=== PATIENT | male | born 1980 | race African-American/Black ===

== ENCOUNTER 2016-05-26 19:26 | Inpatient (IN) | payer MEDICAID ==
[~2016-05-26] VITALS: Ht 175.3 cm; Wt 76.8 kg
[~2016-05-26 19:26] MED LIST: DIVA500T35 PO; QUET50TA PO
[2016-05-26 20:18] LABS: BASOPHILS # (AUTO) 0.03 K/uL (0.00-0.20); BASOPHILS % (AUTO) 0.4 % (0.0-2.0); EOSINOPHILS # (AUTO) 0.05 K/uL (0.00-0.70); EOSINOPHILS % (AUTO) 0.63 % (1.0-6.0); HEMATOCRIT 45.6 % (41-53); LYMPHOCYTES # (AUTO) 2.2 K/uL (1.0-4.8); LYMPHOCYTES % (AUTO) 28.1 % (22.0-44.0); MEAN CORPUSCULAR HEMOGLOBIN 28.3 pg (26.0-34.0); MEAN CORPUSCULAR HGB CONC 32.9 G/dL (31.0-37.0); MEAN CORPUSCULAR VOLUME 86 fL (80-100); MONOCYTES # (AUTO) 0.5 K/uL (0.1-1.0); MONOCYTES % (AUTO) 5.7 % (2.0-9.0); NEUTROPHILS # (AUTO) 5.1 K/uL (1.8-7.7); NEUTROPHILS % (AUTO) 65.2 % (40.0-70.0); PLATELET COUNT (AUTO) 305 K/uL (150-450); RED CELL DISTRIBUTION WIDTH 13.9 % (11.5-14.5); WHITE BLOOD COUNT (AUTO) 7.9 K/uL (4.5-11.0)
[2016-05-26] MEDS ORDERED: QUEtiapine FUMARATE 100 MG TABLET PO ONE (20:30)
[2016-05-26 20:32] LABS: ANION GAP 5 mmol/L (8-16); CALCIUM, TOTAL 9.1 mg/dL (8.8-10.5); CARBON DIOXIDE 32 mmol/L (22-29); CHLORIDE 103 mmol/L (98-107); CREATININE 0.99 mg/dL (0.60-1.30); GLOMERULAR FILTR. RATE CALC > 60 mL/min (>60); POTASSIUM 4.7 mmol/L (3.5-5.1); SODIUM SERUM 140 mmol/L (136-145); UREA NITROGEN, BLOOD 15 mg/dL (7-18)
[2016-05-26] MEDS ORDERED: QUET100T PO (20:35)
[2016-05-26] MEDS ORDERED: QUET200T PO (20:35)
[2016-05-26 20:39] LABS: ALANINE AMINOTRANSFERASE 41 U/L (12-78); ALBUMIN 3.7 g/dL (3.4-5.0); ASPARTATE AMINOTRANSFERASE 18 U/L (15-37); BILIRUBIN,TOTAL 0.4 mg/dL (0.1-1.0)
[2016-05-26] MEDS ORDERED: ZOLPIDEM TARTRATE 10 MG TABLET PO PRN (21:00)
[2016-05-26] MEDS ORDERED: HALOPERIDOL 5 MG TABLET PO PRN (21:00)
[2016-05-26 21:03] LABS: APPEARANCE,URINE CLEAR (CLEAR); GLUCOSE, URINE (UA) NEGATIVE (NEGATIVE); KETONES,URINE NEGATIVE (NEGATIVE); LEUKOCYTE ESTERASE ,URINE NEGATIVE (NEGATIVE); OCCULT BLOOD,URINE NEGATIVE (NEGATIVE); PROTEIN,URINE NEGATIVE (NEGATIVE)
[2016-05-26 21:15] LABS: ADD UA MICROSCOPIC NO
[2016-05-27 00:10] VITALS: BP 140/98
[2016-05-27] MEDS: LORazepam 2 MG TABLET PO PRN ×2 (00:51→20:19)
[2016-05-27] MEDS ORDERED: PNEUMOCOCCAL VACCINE POLYVALENT 0.5 ML VIAL [PPSV23] IM ONE (01:30)
[2016-05-27] MEDS ORDERED: BACITRACIN 28.4 GM OINTMENT TP PRN (06:15)
[2016-05-27] MEDS ORDERED: ALBUTEROL SULFATE HFA 90 MCG/PUFF 8 GM INHALER IH PRN (06:15)
[2016-05-27] MEDS ORDERED: PETROLATUM,WHITE 71 GM JELLY TP PRN (06:15)
[2016-05-27] MEDS ORDERED: ACETAMINOPHEN 325 MG TABLET PO PRN (06:15)
[2016-05-27] MEDS ORDERED: IBUPROFEN 600 MG TABLET PO PRN (06:15)
[2016-05-27] MEDS ORDERED: LOPERAMIDE HCL 2 MG CAPSULE PO PRN (06:15)
[2016-05-27] MEDS ORDERED: ONDANSETRON HCL 4 MG TABLET PO PRN (06:15)
[2016-05-27] MEDS ORDERED: CloNIDine HCL 0.1 MG TABLET PO PRN (06:15)
[2016-05-27] MEDS ORDERED: MAG HYDROX/AL HYDROX/SIMETH ES 30 ML SUSPENSION UDCUP PO PRN (06:15)
[2016-05-27] MEDS ORDERED: MAGNESIUM HYDROXIDE SUSPENSION 30 ML UDCUP PO PRN (06:15)
[2016-05-27 08:08] VITALS: BP 123/60
[2016-05-27] MEDS: LISINOPRIL 10 MG TABLET PO SCH (08:49)
[2016-05-27] MEDS: QUEtiapine FUMARATE 100 MG TABLET PO SCH ×2 (08:49→17:08)
[2016-05-27 16:09] VITALS: BP 123/79
[2016-05-27] MEDS: BENZOCAINE/MENTHOL LOZENGE MM PRN (17:16)
[2016-05-27] MEDS: QUEtiapine FUMARATE 200 MG TABLET PO SCH (21:29)
[2016-05-27] MEDS: DIVALPROEX SODIUM 500 MG DR TABLET PO SCH (21:29)
[2016-05-28 07:26] VITALS: BP 115/69
[2016-05-28] MEDS: GuaiFENesin/D-METHORPHAN/PHENYLEPH 5 ML LIQUID ORAL.SYG PO PRN ×4 (07:40→20:13)
[2016-05-28 08:27] VITALS: BP 139/70
[2016-05-28] MEDS: QUEtiapine FUMARATE 100 MG TABLET PO SCH ×2 (09:50→16:42)
[2016-05-28] MEDS: LISINOPRIL 10 MG TABLET PO SCH (09:50)
[2016-05-28] MEDS: BENZOCAINE/MENTHOL LOZENGE MM PRN (12:01)
[2016-05-28 16:12] VITALS: BP 117/74
[2016-05-28] MEDS: DIVALPROEX SODIUM 500 MG DR TABLET PO SCH (20:33)
[2016-05-28] MEDS: QUEtiapine FUMARATE 200 MG TABLET PO SCH (20:33)
[2016-05-29] MEDS: BENZOCAINE/MENTHOL LOZENGE MM PRN (05:06)
[2016-05-29] MEDS: LORazepam 2 MG TABLET PO PRN (05:31)
[2016-05-29 05:37] VITALS: BP 115/80
[2016-05-29] MEDS: QUEtiapine FUMARATE 100 MG TABLET PO SCH (08:44)
[2016-05-29] MEDS: LISINOPRIL 10 MG TABLET PO SCH (08:44)
[2016-05-29] MEDS: GuaiFENesin/D-METHORPHAN/PHENYLEPH 5 ML LIQUID ORAL.SYG PO PRN (08:45)
[2016-05-29 09:35] VITALS: BP 125/68
[2016-05-29] MEDS ORDERED: LISI-661 PO (11:12)
== END 2016-05-29 16:10 | disposition home or self-care (01) | DRG 750 ==
LOC: EMS 19:27 → B2S 20:30
DX: F25.1 Schizoaffective disorder, depressive type (principal); R45.851 Suicidal ideations; I10 Essential (primary) hypertension; B19.20 Unspecified viral hepatitis C without hepatic coma; F12.90 Cannabis use, unspecified, uncomplicated; F17.200 Nicotine dependence, unspecified, uncomplicated; K59.00 Constipation, unspecified; Z71.6 Tobacco abuse counseling; Z91.5 Personal history of self-harm; Z71.51 Drug abuse counseling and surveillance of drug abuser; Z79.899 Other long term (current) drug therapy; Z28.21 Immunization not carried out because of patient refusal
CPT/HCPCS: 99285; G0480

== ENCOUNTER 2016-11-21 01:29 | Emergency (ER) | payer MEDICAID ==
[~2016-11-21] VITALS: Ht 175.3 cm; Wt 72.7 kg
[~2016-11-21 01:29] MED LIST changes: +LISI-661 PO; +QUET100T PO; +QUET200T PO; -QUET50TA PO
[2016-11-21 01:46] VITALS: BP 136/86
[2016-11-21 02:12] LABS: BASOPHILS % (AUTO) 0.7 % (0.0-2.0); EOSINOPHILS % (AUTO) 1.6 % (1.0-6.0); HEMATOCRIT 46.1 % (41-53); HEMOGLOBIN 15.5 g/dL (13.5-17.5); LYMPHOCYTES # (AUTO) 2.3 K/uL (1.0-4.8); LYMPHOCYTES % (AUTO) 48.8 % (22.0-44.0); MEAN CORPUSCULAR HEMOGLOBIN 29.3 pg (26.0-34.0); MEAN CORPUSCULAR HGB CONC 33.5 G/dL (31.0-37.0); MEAN CORPUSCULAR VOLUME 88 fL (80-100); MONOCYTES # (AUTO) 0.5 K/uL (0.1-1.0); NEUTROPHILS # (AUTO) 1.9 K/uL (1.8-7.7); NEUTROPHILS % (AUTO) 38.9 % (40.0-70.0); PLATELET COUNT (AUTO) 255 K/uL (150-450); RED BLOOD CELL COUNT(AUTO) 5.27 MIL/uL (4.50-5.90); RED CELL DISTRIBUTION WIDTH 13.5 % (11.5-14.5); WHITE BLOOD COUNT (AUTO) 4.8 K/uL (4.5-11.0)
[2016-11-21] MEDS ORDERED: QUEtiapine FUMARATE 100 MG TABLET PO ONE (02:15)
[2016-11-21 02:24] LABS: ANION GAP 6 mmol/L (8-16); CALCIUM, TOTAL 8.6 mg/dL (8.8-10.5); CARBON DIOXIDE 32 mmol/L (22-29); CHLORIDE 104 mmol/L (98-107); CREATININE 1.21 mg/dL (0.60-1.30); GLOMERULAR FILTR. RATE CALC > 60 mL/min (>60); POTASSIUM 3.3 mmol/L (3.5-5.1); SODIUM SERUM 142 mmol/L (136-145); UREA NITROGEN, BLOOD 11 mg/dL (7-18)
[2016-11-21 02:30] LABS: ALANINE AMINOTRANSFERASE 102 U/L (12-78); ALBUMIN 4.1 g/dL (3.4-5.0); ASPARTATE AMINOTRANSFERASE 49 U/L (15-37); BILIRUBIN,TOTAL 0.9 mg/dL (0.1-1.0); TOTAL PROTEIN, SERUM 7.8 g/dL (6.4-8.2)
[2016-11-21 02:42] LABS: VALPROIC ACID < 3 mcg/mL (50-100)
[2017-03-05] MEDS ORDERED: CLIN300C3 PO (11:41)
== END 2016-11-21 02:22 | disposition home or self-care (01) ==
LOC: EMS 01:30
DX: F31.9 Bipolar disorder, unspecified (principal); F20.9 Schizophrenia, unspecified
CPT/HCPCS: 36415; 80053; 80164; 80307; 85025; 99285; G0480

== ENCOUNTER 2017-02-09 01:24 | Emergency (ER) | payer MEDICAID ==
[~2017-02-09] VITALS: Ht 175.3 cm; Wt 63.6 kg
[2017-02-09 01:31] VITALS: BP 154/95
[2017-03-05] MEDS ORDERED: CLIN300C3 PO (11:41)
== END 2017-02-09 02:28 | disposition left against medical advice (07) ==
LOC: EMS 01:25
DX: K08.89 Other specified disorders of teeth and supporting structures (principal); Z53.21 Procedure and treatment not carried out due to patient leaving prior to being seen by health care provider

== ENCOUNTER 2017-02-22 19:56 | Inpatient (IN) | payer MEDICAID ==
[~2017-02-22] VITALS: Ht 175.3 cm; Wt 77.7 kg
[2017-02-22 20:25] LABS: BASOPHILS # (AUTO) 0.03 K/uL (0.00-0.20); BASOPHILS % (AUTO) 0.6 % (0.0-2.0); EOSINOPHILS # (AUTO) 0.06 K/uL (0.00-0.70); EOSINOPHILS % (AUTO) 1.05 % (1.0-6.0); HEMATOCRIT 47.6 % (41-53); HEMOGLOBIN 15.8 g/dL (13.5-17.5); LYMPHOCYTES # (AUTO) 1.9 K/uL (1.0-4.8); LYMPHOCYTES % (AUTO) 30.2 % (22.0-44.0); MEAN CORPUSCULAR HEMOGLOBIN 29.2 pg (26.0-34.0); MEAN CORPUSCULAR HGB CONC 33.1 G/dL (31.0-37.0); MEAN CORPUSCULAR VOLUME 88 fL (80-100); MONOCYTES # (AUTO) 0.2 K/uL (0.1-1.0); MONOCYTES % (AUTO) 3.9 % (2.0-9.0); NEUTROPHILS % (AUTO) 64.2 % (40.0-70.0); PLATELET COUNT (AUTO) 340 K/uL (150-450); RED BLOOD CELL COUNT(AUTO) 5.39 MIL/uL (4.50-5.90); RED CELL DISTRIBUTION WIDTH 13.1 % (11.5-14.5)
[2017-02-22 20:38] LABS: AMPHET/METH SCREEN,URINE POSITIVE (NEGATIVE); BARBITURATE SCREEN, URINE NEGATIVE (NEGATIVE); BENZODIAZEPINES SCREEN,URINE NEGATIVE (NEGATIVE); CANNABINOID SCREEN,URINE POSITIVE (NEGATIVE); COCAINE SCREEN,URINE NEGATIVE (NEGATIVE); METHADONE SCREEN, URINE NEGATIVE (NEGATIVE); OPIATE SCREEN,URINE NEGATIVE (NEGATIVE)
[2017-02-22 20:39] LABS: PHENCYCLIDINE SCREEN,URINE NEGATIVE (NEGATIVE)
[2017-02-22 20:42] LABS: ANION GAP 7 mmol/L (8-16); CALCIUM, TOTAL 8.9 mg/dL (8.8-10.5); CARBON DIOXIDE 29 mmol/L (22-29); CHLORIDE 102 mmol/L (98-107); CREATININE 1.16 mg/dL (0.60-1.30); GLOMERULAR FILTR. RATE CALC > 60 mL/min (>60); GLUCOSE,RANDOM 103 mg/dL (70-110); POTASSIUM 3.8 mmol/L (3.5-5.1); SODIUM SERUM 138 mmol/L (136-145); UREA NITROGEN, BLOOD 16 mg/dL (7-18)
[2017-02-22 20:48] LABS: ALANINE AMINOTRANSFERASE 46 U/L (12-78); ALBUMIN 3.7 g/dL (3.4-5.0); ALKALINE PHOSPHATASE 82 U/L (46-116); ASPARTATE AMINOTRANSFERASE 25 U/L (15-37); BILIRUBIN,TOTAL 0.5 mg/dL (0.1-1.0); TOTAL PROTEIN, SERUM 7.6 g/dL (6.4-8.2)
[2017-02-22 21:34] LABS: APPEARANCE,URINE CLEAR (CLEAR); BILIRUBIN,URINE NEGATIVE (NEGATIVE); GLUCOSE, URINE (UA) NEGATIVE (NEGATIVE); KETONES,URINE NEGATIVE (NEGATIVE); LEUKOCYTE ESTERASE ,URINE NEGATIVE (NEGATIVE); NITRATE,URINE NEGATIVE (NEGATIVE); OCCULT BLOOD,URINE NEGATIVE (NEGATIVE); PROTEIN,URINE NEGATIVE (NEGATIVE); UROBILINOGEN,URINE 0.2 mg/dL (<=1.0)
[2017-02-22 21:52] LABS: CHOL/HDL RATIO 3.5 (4.2-7.3); CHOLESTEROL 138 mg/dL (131-200); HDL CHOLESTEROL 39 mg/dL (40-60); LDL CHOL (CALC.) 81 mg/dL (0-130); THYROID STIMULATING HORMONE 3.63 uIU/mL (0.36-3.74); TRIGLYCERIDES 89 mg/dL (15-150)
[2017-02-23 02:00] VITALS: BP 123/66
[2017-02-23 08:00] VITALS: BP 128/80
[2017-02-23] MEDS: LORazepam 2 MG TABLET PO PRN (11:34)
[2017-02-23] MEDS: HALOPERIDOL 5 MG TABLET PO PRN (11:34)
[2017-02-23 16:15] VITALS: BP 131/78
[2017-02-23] MEDS: DIVALPROEX SODIUM 500 MG DR TABLET PO SCH (21:00)
[2017-02-23] MEDS: QUEtiapine FUMARATE 200 MG TABLET PO SCH (21:00)
[2017-02-24] MEDS: ZOLPIDEM TARTRATE 10 MG TABLET PO PRN
[2017-02-24] MEDS: LORazepam 2 MG TABLET PO PRN (03:00)
[2017-02-24] MEDS: HALOPERIDOL 5 MG TABLET PO PRN (03:01)
[2017-02-24 03:05] VITALS: BP 137/78
[2017-02-24 08:30] VITALS: BP 133/74
[2017-02-24] MEDS: QUEtiapine FUMARATE 100 MG TABLET PO SCH ×2 (08:53→16:41)
[2017-02-24 18:32] VITALS: BP 132/78
[2017-02-24] MEDS: QUEtiapine FUMARATE 200 MG TABLET PO SCH (20:34)
[2017-02-24] MEDS: DIVALPROEX SODIUM 500 MG DR TABLET PO SCH (20:34)
[2017-02-25] MEDS: QUEtiapine FUMARATE 100 MG TABLET PO SCH ×2 (08:50→16:15)
[2017-02-25 09:47] VITALS: BP 123/76
[2017-02-25 16:18] VITALS: BP 130/73
[2017-02-25] MEDS: DIVALPROEX SODIUM 500 MG DR TABLET PO SCH (20:20)
[2017-02-25] MEDS: QUEtiapine FUMARATE 200 MG TABLET PO SCH (20:21)
[2017-02-26 08:00] VITALS: BP 143/72
[2017-02-26] MEDS ORDERED: IBUPROFEN 600 MG TABLET PO PRN (09:00)
[2017-02-26] MEDS ORDERED: ACETAMINOPHEN 650 MG/20.3 ML SOLUTION UDCUP PO PRN (09:00)
[2017-02-26] MEDS: QUEtiapine FUMARATE 100 MG TABLET PO SCH ×2 (09:16→16:14)
[2017-02-26 10:52] VITALS: BP_SYST 136; BP_SYST 143; BP_DIAS 72; BP_DIAS 82
[2017-02-26 18:45] VITALS: BP 128/85
[2017-02-26] MEDS: QUEtiapine FUMARATE 200 MG TABLET PO SCH (20:42)
[2017-02-26] MEDS: DIVALPROEX SODIUM 500 MG DR TABLET PO SCH (20:42)
[2017-02-27 02:10] VITALS: BP 124/75
[2017-02-27] MEDS: LORazepam 2 MG TABLET PO PRN (02:21)
[2017-02-27] MEDS: ZOLPIDEM TARTRATE 10 MG TABLET PO PRN (02:21)
[2017-02-27] MEDS: QUEtiapine FUMARATE 100 MG TABLET PO SCH (09:16)
[2017-02-27 10:35] VITALS: BP 145/70
[2017-02-27] MEDS ORDERED: QUET200T PO (13:31)
[2017-02-27] MEDS ORDERED: QUET100T PO (13:31)
[2017-02-27] MEDS ORDERED: DIVA500T52 PO (13:31)
[2017-03-05] MEDS ORDERED: CLIN300C3 PO (11:41)
== END 2017-02-27 15:45 | disposition home or self-care (01) | DRG 750 ==
LOC: EMS 19:57 → 3EI 21:59
PROVIDERS: ADMIT Psychiatry & Neurology Psychiatry; ATTEND Psychiatry & Neurology Psychiatry
DX: F25.9 Schizoaffective disorder, unspecified (principal); R45.851 Suicidal ideations; F15.90 Other stimulant use, unspecified, uncomplicated; F12.90 Cannabis use, unspecified, uncomplicated; Z71.51 Drug abuse counseling and surveillance of drug abuser
CPT/HCPCS: 84443; 99285; G0480

== ENCOUNTER 2018-12-08 19:45 | Emergency (ER) | payer MEDICAID, OTHER ==
[~2018-12-08] VITALS: Ht 175.3 cm; Wt 79.5 kg
[~2018-12-08 19:45] MED LIST changes: +CLIN300C3 PO; -DIVA500T35 PO; +DIVA500T52 PO; -LISI-661 PO; -QUET100T PO
[2018-12-08 20:37] LABS: EOSINOPHILS % (AUTO) 1.7 % (1.0-6.0); HEMATOCRIT 47.2 % (41-53); HEMOGLOBIN 15.7 g/dL (13.5-17.5); LYMPHOCYTES % (AUTO) 34.6 % (22.0-44.0); MEAN CORPUSCULAR HEMOGLOBIN 28.7 pg (26.0-34.0); MEAN CORPUSCULAR HGB CONC 33.2 G/dL (31.0-37.0); MEAN CORPUSCULAR VOLUME 86 fL (80-100); MONOCYTES # (AUTO) 0.4 K/uL (0.1-1.0); MONOCYTES % (AUTO) 7.7 % (2.0-9.0); NEUTROPHILS # (AUTO) 3.2 K/uL (1.8-7.7); PLATELET COUNT (AUTO) 354 K/uL (150-450); RED BLOOD CELL COUNT(AUTO) 5.46 MIL/uL (4.50-5.90); RED CELL DISTRIBUTION WIDTH 14.2 % (11.5-14.5)
[2018-12-08 20:47] LABS: ANION GAP 3 mmol/L (8-16); CARBON DIOXIDE 36 mmol/L (22-29); CHLORIDE 105 mmol/L (98-107); CREATININE 1.08 mg/dL (0.60-1.30); GLOMERULAR FILTR. RATE CALC > 60 mL/min (>60); GLUCOSE,RANDOM 77 mg/dL (70-110); POTASSIUM 4.1 mmol/L (3.5-5.1); SODIUM SERUM 144 mmol/L (136-145); UREA NITROGEN, BLOOD 13 mg/dL (7-18)
[2018-12-08 20:49] LABS: AMPHET/METH SCREEN,URINE NEGATIVE (NEGATIVE); BARBITURATE SCREEN, URINE NEGATIVE (NEGATIVE); BENZODIAZEPINES SCREEN,URINE NEGATIVE (NEGATIVE); CANNABINOID SCREEN,URINE POSITIVE (NEGATIVE); COCAINE SCREEN,URINE NEGATIVE (NEGATIVE); METHADONE SCREEN, URINE NEGATIVE (NEGATIVE); OPIATE SCREEN,URINE NEGATIVE (NEGATIVE)
[2018-12-08 20:51] LABS: PHENCYCLIDINE SCREEN,URINE NEGATIVE (NEGATIVE)
[2018-12-08 20:54] LABS: ALANINE AMINOTRANSFERASE 27 U/L (12-78); ALKALINE PHOSPHATASE 82 U/L (46-116); ASPARTATE AMINOTRANSFERASE 16 U/L (15-37); BILIRUBIN,TOTAL 0.8 mg/dL (0.1-1.0); TOTAL PROTEIN, SERUM 7.7 g/dL (6.4-8.2)
[2018-12-08 21:25] LABS: VALPROIC ACID < 3 mcg/mL (50-100)
[2018-12-09 00:45] VITALS: BP 120/77
== END 2018-12-09 01:15 | disposition short-term general hospital (02) ==
LOC: EMS 19:46
DX: F25.9 Schizoaffective disorder, unspecified (principal); F31.9 Bipolar disorder, unspecified; F12.90 Cannabis use, unspecified, uncomplicated
CPT/HCPCS: 36415; 80053; 80164; 80307; 85025; 99285; G0480

== ENCOUNTER 2020-08-10 21:25 | Inpatient (IN) | payer MEDICAID, OTHER ==
[~2020-08-10] VITALS: Ht 175.3 cm; Wt 78.0 kg
[2020-08-10 22:27] LABS: BASOPHILS % (AUTO) 0.6 % (0.0-2.0); EOSINOPHILS % (AUTO) 0.7 % (1.0-6.0); HEMATOCRIT 47.9 % (41-53); HEMOGLOBIN 15.6 g/dL (13.5-17.5); LYMPHOCYTES # (AUTO) 1.2 K/uL (1.0-4.8); MEAN CORPUSCULAR HEMOGLOBIN 28.5 pg (26.0-34.0); MEAN CORPUSCULAR HGB CONC 32.6 G/dL (31.0-37.0); MEAN CORPUSCULAR VOLUME 87 fL (80-100); MONOCYTES # (AUTO) 0.6 K/uL (0.1-1.0); NEUTROPHILS # (AUTO) 3.3 K/uL (1.8-7.7); NEUTROPHILS % (AUTO) 63.7 % (40.0-70.0); PLATELET COUNT (AUTO) 362 K/uL (150-450); RED BLOOD CELL COUNT(AUTO) 5.49 MIL/uL (4.50-5.90); RED CELL DISTRIBUTION WIDTH 14.2 % (11.5-14.5)
[2020-08-10 22:53] LABS: ANION GAP 7 mmol/L (8-16); CALCIUM, TOTAL 9.1 mg/dL (8.8-10.5); CARBON DIOXIDE 30 mmol/L (22-29); CHLORIDE 105 mmol/L (98-107); CREATININE 0.96 mg/dL (0.60-1.30); GLOMERULAR FILTR. RATE CALC > 60 mL/min (>60); GLUCOSE,RANDOM 99 mg/dL (70-110); POTASSIUM 4.6 mmol/L (3.5-5.1); SODIUM SERUM 142 mmol/L (136-145); UREA NITROGEN, BLOOD 16 mg/dL (7-18)
[2020-08-10 23:01] LABS: ALANINE AMINOTRANSFERASE 28 U/L (12-78); ALKALINE PHOSPHATASE 95 U/L (46-116); ASPARTATE AMINOTRANSFERASE 18 U/L (15-37); BILIRUBIN,TOTAL 0.3 mg/dL (0.1-1.0)
[2020-08-10 23:05] LABS: COVID AG,FIA SOURCE NASOPHARYNGEAL
[2020-08-10 23:27] LABS: AMPHET/METH SCREEN,URINE POSITIVE (NEGATIVE); BARBITURATE SCREEN, URINE NEGATIVE (NEGATIVE); BENZODIAZEPINES SCREEN,URINE NEGATIVE (NEGATIVE); CANNABINOID SCREEN,URINE POSITIVE (NEGATIVE); COCAINE SCREEN,URINE NEGATIVE (NEGATIVE); METHADONE SCREEN, URINE NEGATIVE (NEGATIVE); OPIATE SCREEN,URINE NEGATIVE (NEGATIVE); PHENCYCLIDINE SCREEN,URINE NEGATIVE (NEGATIVE)
[2020-08-11] MEDS ORDERED: QUEtiapine FUMARATE 100 MG TABLET PO ONE ×2 (00:15→16:15)
[2020-08-11] MEDS ORDERED: DIVALPROEX SODIUM 250 MG DR TABLET PO ONE (00:15)
[2020-08-11] MEDS ORDERED: ZOLPIDEM TARTRATE 10 MG TABLET PO PRN (01:45)
[2020-08-11] MEDS ORDERED: HALOPERIDOL 5 MG TABLET PO PRN (01:45)
[2020-08-12 01:05] VITALS: BP 142/98
[2020-08-12] MEDS ORDERED: OMEPRAZOLE 20 MG CAPSULE PO PRN (06:15)
[2020-08-12] MEDS ORDERED: BACITRACIN 28 GM OINTMENT TP PRN (06:15)
[2020-08-12] MEDS ORDERED: ONDANSETRON HCL 4 MG TABLET PO PRN (06:15)
[2020-08-12] MEDS ORDERED: LOPERAMIDE HCL 2 MG CAPSULE PO PRN (06:15)
[2020-08-12] MEDS ORDERED: PETROLATUM,WHITE 28 GM JELLY TP PRN (06:15)
[2020-08-12] MEDS ORDERED: ACETAMINOPHEN 325 MG TABLET PO PRN (06:15)
[2020-08-12] MEDS ORDERED: DOCUSATE SODIUM 100 MG CAPSULE PO PRN (06:15)
[2020-08-12] MEDS ORDERED: BENZOCAINE/MENTHOL LOZENGE PO PRN (06:15)
[2020-08-12] MEDS ORDERED: MAGNESIUM HYDROXIDE SUSPENSION 30 ML UDCUP PO PRN (06:15)
[2020-08-12] MEDS ORDERED: CloNIDine HCL 0.1 MG TABLET PO PRN (06:15)
[2020-08-12] MEDS ORDERED: MAG HYDROX/AL HYDROX/SIMETH ES 30 ML SUSPENSION UDCUP PO PRN (06:15)
[2020-08-12] MEDS ORDERED: IBUPROFEN 600 MG TABLET PO PRN (06:15)
[2020-08-12] MEDS ORDERED: ALBUTEROL SULFATE HFA 90 MCG/PUFF 8 GM INHALER IH PRN (06:15)
[2020-08-12 07:56] LABS: CHOL/HDL RATIO 2.8 (4.2-7.3)
[2020-08-12 08:00] VITALS: BP 125/71
[2020-08-12] MEDS: LORazepam 2 MG TABLET PO PRN ×2 (08:29→14:57)
[2020-08-12 16:07] VITALS: BP 152/90
[2020-08-12] MEDS: QUEtiapine FUMARATE 100 MG TABLET PO SCH (16:25)
[2020-08-12] MEDS ORDERED: QUEtiapine FUMARATE 200 MG TABLET PO SCH (21:00)
[2020-08-12] MEDS ORDERED: DIVALPROEX SODIUM 500 MG DR TABLET PO SCH (21:00)
[2020-08-13 04:57] VITALS: BP 145/100
[2020-08-13] MEDS ORDERED: DIVA-112 PO (08:48)
[2020-08-13] MEDS ORDERED: QUET100T PO (08:49)
[2020-08-13] MEDS ORDERED: QUET200T PO (08:49)
[2020-08-13] MEDS: QUEtiapine FUMARATE 100 MG TABLET PO SCH (08:55)
== END 2020-08-13 15:30 | disposition home or self-care (01) | DRG 750 ==
LOC: EMS 21:29 → 3EI 08-11 18:53
PROVIDERS: ADMIT Psychiatry & Neurology Psychiatry; ATTEND Psychiatry & Neurology Psychiatry
DX: F25.9 Schizoaffective disorder, unspecified (principal); R45.851 Suicidal ideations; F12.90 Cannabis use, unspecified, uncomplicated; F15.10 Other stimulant abuse, uncomplicated; F17.200 Nicotine dependence, unspecified, uncomplicated; I10 Essential (primary) hypertension; K59.00 Constipation, unspecified; F41.9 Anxiety disorder, unspecified; Z20.822 Contact with and (suspected) exposure to COVID-19
CPT/HCPCS: 80053; 80061; 85025; 99285; G0480

== ENCOUNTER 2021-06-13 15:36 | Inpatient (IN) | payer MEDICAID, OTHER ==
[~2021-06-13] VITALS: Ht 175.3 cm; Wt 76.4 kg
[~2021-06-13 15:36] MED LIST changes: -CLIN300C3 PO; +DIVA-112 PO; -DIVA500T52 PO; +QUET100T PO
[2021-06-13 16:19] LABS: BASOPHILS % (AUTO) 0.5 % (0.0-2.0); EOSINOPHILS % (AUTO) 0.6 % (1.0-6.0); HEMOGLOBIN 16.5 g/dL (13.5-17.5); LYMPHOCYTES # (AUTO) 1.4 K/uL (1.0-4.8); LYMPHOCYTES % (AUTO) 17.2 % (22.0-44.0); MEAN CORPUSCULAR HGB CONC 33.1 G/dL (31.0-37.0); MEAN CORPUSCULAR VOLUME 85 fL (80-100); MONOCYTES # (AUTO) 0.6 K/uL (0.1-1.0); MONOCYTES % (AUTO) 7.2 % (2.0-9.0); NEUTROPHILS % (AUTO) 74.5 % (40.0-70.0); PLATELET COUNT (AUTO) 411 K/uL (150-450); RED CELL DISTRIBUTION WIDTH 14.1 % (11.5-14.5)
[2021-06-13 16:29] LABS: ANION GAP 5 mmol/L (8-16); CALCIUM, TOTAL 9.5 mg/dL (8.8-10.5); CARBON DIOXIDE 35 mmol/L (22-29); CHLORIDE 102 mmol/L (98-107); CREATININE 1.19 mg/dL (0.60-1.30); GLOMERULAR FILTR. RATE CALC > 60 mL/min (>60); GLUCOSE,RANDOM 92 mg/dL (70-110); POTASSIUM 4.4 mmol/L (3.5-5.1); SODIUM SERUM 142 mmol/L (136-145); UREA NITROGEN, BLOOD 11 mg/dL (7-18)
[2021-06-13 16:34] LABS: ALANINE AMINOTRANSFERASE 27 U/L (12-78); ALBUMIN 4.2 g/dL (3.4-5.0); ALKALINE PHOSPHATASE 87 U/L (46-116); ASPARTATE AMINOTRANSFERASE 17 U/L (15-37); BILIRUBIN,TOTAL 0.3 mg/dL (0.1-1.0); TOTAL PROTEIN, SERUM 8.5 g/dL (6.4-8.2)
[2021-06-13 16:35] LABS: COVID AG,FIA SOURCE NASOPHARYNGEAL
[2021-06-13 16:35] LABS: AMPHET/METH SCREEN,URINE NEGATIVE (NEGATIVE); BARBITURATE SCREEN, URINE NEGATIVE (NEGATIVE); BENZODIAZEPINES SCREEN,URINE NEGATIVE (NEGATIVE); CANNABINOID SCREEN,URINE POSITIVE (NEGATIVE); COCAINE SCREEN,URINE NEGATIVE (NEGATIVE); METHADONE SCREEN, URINE NEGATIVE (NEGATIVE); OPIATE SCREEN,URINE NEGATIVE (NEGATIVE)
[2021-06-13 16:36] LABS: PHENCYCLIDINE SCREEN,URINE NEGATIVE (NEGATIVE)
[2021-06-13] MEDS ORDERED: LORazepam 1 MG TABLET PO ONE (17:00)
[2021-06-13] MEDS ORDERED: QUEtiapine FUMARATE 100 MG TABLET PO ONE (19:15)
[2021-06-13] MEDS ORDERED: ZOLPIDEM TARTRATE 10 MG TABLET PO PRN (20:00)
[2021-06-13 21:23] VITALS: BP 144/90
[2021-06-14] MEDS ORDERED: LOPERAMIDE HCL 2 MG CAPSULE PO PRN (07:45)
[2021-06-14] MEDS ORDERED: PETROLATUM,WHITE 28 GM JELLY TP PRN (07:45)
[2021-06-14] MEDS ORDERED: ACETAMINOPHEN 325 MG TABLET PO PRN (07:45)
[2021-06-14] MEDS ORDERED: NICOTINE 14 MG/24 HOUR PATCH TD PRN (07:45)
[2021-06-14] MEDS ORDERED: GuaiFENesin/D-METHORPHAN [SUGAR-FREE] 200-20MG/10 ML SYRUP UDCUP PO PRN (07:45)
[2021-06-14] MEDS ORDERED: CloNIDine HCL 0.1 MG TABLET PO PRN (07:45)
[2021-06-14] MEDS ORDERED: IBUPROFEN 400 MG TABLET PO PRN (07:45)
[2021-06-14] MEDS ORDERED: ONDANSETRON HCL 4 MG TABLET PO PRN (07:45)
[2021-06-14] MEDS ORDERED: ALBUTEROL SULFATE HFA 90 MCG/PUFF 8 GM INHALER IH PRN (07:45)
[2021-06-14] MEDS ORDERED: DOCUSATE SODIUM 100 MG CAPSULE PO PRN (07:45)
[2021-06-14] MEDS ORDERED: MAG HYDROX/AL HYDROX/SIMETH ES 30 ML SUSPENSION UDCUP PO PRN (07:45)
[2021-06-14] MEDS ORDERED: MAGNESIUM HYDROXIDE SUSPENSION 30 ML UDCUP PO PRN (07:45)
[2021-06-14] MEDS: LORazepam 2 MG TABLET PO PRN (08:10)
[2021-06-14] MEDS: HALOPERIDOL 5 MG TABLET PO PRN (08:10)
[2021-06-14 09:45] VITALS: BP 154/86
[2021-06-14 16:41] VITALS: BP 157/85
[2021-06-14] MEDS: QUEtiapine FUMARATE 100 MG TABLET PO SCH (16:53)
[2021-06-14] MEDS: QUEtiapine FUMARATE 200 MG TABLET PO SCH (20:31)
[2021-06-14] MEDS: DIVALPROEX SODIUM 500 MG DR TABLET PO SCH (20:31)
[2021-06-15 05:23] VITALS: BP 142/85
[2021-06-15] MEDS: HALOPERIDOL 5 MG TABLET PO PRN ×2 (05:23→14:40)
[2021-06-15] MEDS: QUEtiapine FUMARATE 100 MG TABLET PO SCH ×2 (08:31→16:08)
[2021-06-15 08:58] VITALS: BP 167/99
[2021-06-15] MEDS: LORazepam 2 MG TABLET PO PRN (14:40)
[2021-06-15 16:58] VITALS: BP 103/67
[2021-06-15] MEDS: DIVALPROEX SODIUM 500 MG DR TABLET PO SCH (20:00)
[2021-06-15] MEDS: QUEtiapine FUMARATE 200 MG TABLET PO SCH (20:00)
[2021-06-16] MEDS: QUEtiapine FUMARATE 100 MG TABLET PO SCH (08:37)
[2021-06-16 08:47] VITALS: BP 152/71
[2021-06-16] MEDS ORDERED: QUET200T PO (11:00)
[2021-06-16] MEDS ORDERED: DIVA-112 PO (11:00)
[2021-06-16] MEDS ORDERED: QUET100T PO (11:00)
== END 2021-06-16 13:34 | disposition home or self-care (01) | DRG 750 ==
LOC: EMS 15:41 → 3EI 20:46
PROVIDERS: ADMIT Psychiatry & Neurology Psychiatry; ATTEND Psychiatry & Neurology Psychiatry
DX: F25.1 Schizoaffective disorder, depressive type (principal); F12.10 Cannabis abuse, uncomplicated; F31.9 Bipolar disorder, unspecified; F41.9 Anxiety disorder, unspecified; G47.00 Insomnia, unspecified; I10 Essential (primary) hypertension; F15.90 Other stimulant use, unspecified, uncomplicated; Z20.822 Contact with and (suspected) exposure to COVID-19; Z91.14 Patient's other noncompliance with medication regimen; Z79.899 Other long term (current) drug therapy
CPT/HCPCS: 80053; 85025; 87081; 99285; G0480

== ENCOUNTER 2021-06-23 09:06 | Emergency (ER) | payer MEDICAID, OTHER ==
[~2021-06-23] VITALS: Ht 175.3 cm; Wt 77.8 kg
[2021-06-23] MEDS: HydrOXYzine HCL 25 MG TABLET PO ONE (10:21)
[2021-06-23 10:54] VITALS: BP 132/75
== END 2021-06-23 11:06 | disposition home or self-care (01) ==
LOC: EMS 09:10
DX: F41.9 Anxiety disorder, unspecified (principal); F31.9 Bipolar disorder, unspecified; I10 Essential (primary) hypertension; F20.9 Schizophrenia, unspecified; F12.90 Cannabis use, unspecified, uncomplicated; Z98.890 Other specified postprocedural states
CPT/HCPCS: 99283

== ENCOUNTER 2021-09-06 19:36 | Emergency (ER) | payer OTHER ==
[~2021-09-06] VITALS: Ht 175.3 cm; Wt 77.0 kg
[2021-09-06 20:42] VITALS: BP 164/93
[2021-09-06] MEDS ORDERED: QUET100T PO (20:42)
[2021-09-06] MEDS ORDERED: DIVA-112 PO (20:42)
[2021-09-06] MEDS ORDERED: QUET200T PO (20:42)
[2021-09-06] MEDS ORDERED: QUEtiapine FUMARATE 100 MG TABLET PO ONE (20:45)
[2021-09-06] MEDS ORDERED: DIVALPROEX SODIUM 500 MG ER TABLET PO ONE (20:45)
[2021-09-06] MEDS ORDERED: LORazepam 1 MG TABLET PO ONE (20:45)
== END 2021-09-06 20:59 | disposition home or self-care (01) ==
LOC: EMS 19:37
DX: F25.1 Schizoaffective disorder, depressive type (principal); F41.9 Anxiety disorder, unspecified; F12.90 Cannabis use, unspecified, uncomplicated; Z79.899 Other long term (current) drug therapy
CPT/HCPCS: 99284; Z7502; Z7610

== ENCOUNTER 2021-09-06 22:52 | Emergency (ER) | payer OTHER ==
[~2021-09-06] VITALS: Ht 180.3 cm; Wt 81.8 kg
[2021-09-07 00:49] LABS: EOSINOPHILS % (AUTO) 1.1 % (1.0-6.0); HEMATOCRIT 45.3 % (41-53); HEMOGLOBIN 14.9 g/dL (13.5-17.5); LYMPHOCYTES # (AUTO) 1.8 K/uL (1.0-4.8); LYMPHOCYTES % (AUTO) 32.9 % (22.0-44.0); MEAN CORPUSCULAR VOLUME 85 fL (80-100); MONOCYTES # (AUTO) 0.6 K/uL (0.1-1.0); MONOCYTES % (AUTO) 11.8 % (2.0-9.0); NEUTROPHILS # (AUTO) 2.9 K/uL (1.8-7.7); NEUTROPHILS % (AUTO) 53.2 % (40.0-70.0); PLATELET COUNT (AUTO) 301 K/uL (150-450); RED BLOOD CELL COUNT(AUTO) 5.33 MIL/uL (4.50-5.90); RED CELL DISTRIBUTION WIDTH 15.2 % (11.5-14.5)
[2021-09-07 00:56] LABS: ANION GAP 10 mmol/L (8-16); CALCIUM, TOTAL 9.1 mg/dL (8.8-10.5); CARBON DIOXIDE 27 mmol/L (22-29); CHLORIDE 106 mmol/L (98-107); CREATININE 0.96 mg/dL (0.60-1.30); GLUCOSE,RANDOM 104 mg/dL (70-110); POTASSIUM 3.4 mmol/L (3.5-5.1); SODIUM SERUM 143 mmol/L (136-145); UREA NITROGEN, BLOOD 12 mg/dL (7-18)
[2021-09-07 01:01] LABS: GLOMERULAR FILTR. RATE CALC > 60 mL/min (>60)
[2021-09-07 01:02] LABS: ALANINE AMINOTRANSFERASE 25 U/L (12-78); ALBUMIN 3.8 g/dL (3.4-5.0); ALKALINE PHOSPHATASE 77 U/L (46-116); ASPARTATE AMINOTRANSFERASE 14 U/L (15-37); BILIRUBIN,TOTAL 0.3 mg/dL (0.1-1.0); TOTAL PROTEIN, SERUM 7.2 g/dL (6.4-8.2)
[2021-09-07 05:49] VITALS: BP 120/67
== END 2021-09-07 06:31 | disposition home or self-care (01) ==
LOC: EMS 22:52
DX: F25.9 Schizoaffective disorder, unspecified (principal); T50.995A Adverse effect of other drugs, medicaments and biological substances, initial encounter; I10 Essential (primary) hypertension; F31.9 Bipolar disorder, unspecified; F12.90 Cannabis use, unspecified, uncomplicated; Z79.899 Other long term (current) drug therapy; Y92.89 Other specified places as the place of occurrence of the external cause
CPT/HCPCS: 99283; 80053; 85025; 36415; G0480

== ENCOUNTER 2021-10-24 16:15 | Emergency (ER) | payer OTHER ==
[~2021-10-24] VITALS: Ht 182.9 cm; Wt 84.1 kg
[2021-10-24 16:16] VITALS: BP 143/86
== END 2021-10-24 17:18 | disposition left against medical advice (07) ==
LOC: EMS 16:16
DX: Z53.21 Procedure and treatment not carried out due to patient leaving prior to being seen by health care provider (principal)

== ENCOUNTER 2023-07-16 01:29 | Emergency (ER) | payer OTHER ==
[~2023-07-16] VITALS: Ht 175.3 cm; Wt 72.3 kg
[2023-07-16 01:50] VITALS: BP 134/88; PULSE 95; RESP 18; TEMP 98
[2023-07-16] MEDS: LORazepam 1 MG TABLET PO ONE (01:59)
== END 2023-07-16 02:15 | disposition home or self-care (01) ==
LOC: EMS 01:30
DX: F41.9 Anxiety disorder, unspecified (principal); F31.9 Bipolar disorder, unspecified; I10 Essential (primary) hypertension; F20.9 Schizophrenia, unspecified; F17.210 Nicotine dependence, cigarettes, uncomplicated; F12.90 Cannabis use, unspecified, uncomplicated; F15.90 Other stimulant use, unspecified, uncomplicated; F10.90 Alcohol use, unspecified, uncomplicated; Z98.890 Other specified postprocedural states; Y90.9 Presence of alcohol in blood, level not specified
CPT/HCPCS: 99283

== ENCOUNTER 2023-07-18 02:30 | Inpatient (IN) | payer MEDICAID, OTHER ==
[~2023-07-18] VITALS: Ht 175.3 cm; Wt 70.8 kg
[2023-07-18 03:57] LABS: EOSINOPHILS % (AUTO) 1.7 % (1.0-6.0); HEMATOCRIT 39.2 % (41-53); HEMOGLOBIN 13.2 g/dL (13.5-17.5); LYMPHOCYTES # (AUTO) 1.8 K/uL (1.0-4.8); LYMPHOCYTES % (AUTO) 32.2 % (22.0-44.0); MEAN CORPUSCULAR HGB CONC 33.5 G/dL (31.0-37.0); MEAN CORPUSCULAR VOLUME 84 fL (80-100); MONOCYTES # (AUTO) 0.6 K/uL (0.1-1.0); MONOCYTES % (AUTO) 11.2 % (2.0-9.0); NEUTROPHILS % (AUTO) 53.9 % (40.0-70.0); PLATELET COUNT (AUTO) 319 K/uL (150-450); RED BLOOD CELL COUNT(AUTO) 4.69 MIL/uL (4.50-5.90); RED CELL DISTRIBUTION WIDTH 14.8 % (11.5-14.5); WHITE BLOOD COUNT (AUTO) 5.6 K/uL (4.5-11.0)
[2023-07-18 04:06] LABS: ANION GAP 7 mmol/L (8-16); CALCIUM, TOTAL 8.9 mg/dL (8.8-10.5); CARBON DIOXIDE 28 mmol/L (22-29); CHLORIDE 106 mmol/L (98-107); CREATININE 0.98 mg/dL (0.60-1.30); GLOMERULAR FILTR. RATE CALC > 60 mL/min (>60); GLUCOSE,RANDOM 100 mg/dL (70-110); POTASSIUM 3.9 mmol/L (3.5-5.1); SODIUM SERUM 141 mmol/L (136-145); UREA NITROGEN, BLOOD 12 mg/dL (7-18)
[2023-07-18 04:17] LABS: ALCOHOL, BLOOD (SERUM) < 3 mg/dL (0-10)
[2023-07-18] MEDS ORDERED: DiphenhydrAMINE HCL 50 MG/ML VIAL ONE (06:03)
[2023-07-18] MEDS ORDERED: LORazepam 2 MG/ML VIAL ONE (06:03)
[2023-07-18] MEDS: LORazepam 2 MG/ML VIAL IM ONE (06:12)
[2023-07-18] MEDS: HALOPERIDOL LACTATE 5 MG/ML VIAL IM ONE (06:12)
[2023-07-18] MEDS: DiphenhydrAMINE HCL 50 MG/ML VIAL IM ONE (06:12)
[2023-07-18 06:35] LABS: COVID AG,FIA SOURCE NASAL SWAB
[2023-07-18 06:38] LABS: PH,URINE DRUG SCREEN 7.5 (5.0-8.0)
[2023-07-18 06:44] LABS: ALCOHOL, URINE DRUG SCREEN NEGATIVE (NEGATIVE); AMPHET/METH SCREEN,URINE NEGATIVE (NEGATIVE); BARBITURATE SCREEN, URINE NEGATIVE (NEGATIVE); BENZODIAZEPINES SCREEN,URINE NEGATIVE (NEGATIVE); CANNABINOID SCREEN,URINE POSITIVE (NEGATIVE); COCAINE SCREEN,URINE NEGATIVE (NEGATIVE); METHADONE SCREEN, URINE NEGATIVE (NEGATIVE); OPIATE SCREEN,URINE NEGATIVE (NEGATIVE); PHENCYCLIDINE SCREEN,URINE NEGATIVE (NEGATIVE)
[2023-07-18 08:01] LABS: SARS-COV2 (COVID) ANTIGEN,FIA Negative (Negative)
[2023-07-18] MEDS: HALOPERIDOL 5 MG TABLET PO PRN (11:43)
[2023-07-18] MEDS: LORazepam 2 MG TABLET PO PRN (11:43)
[2023-07-18 12:06] LABS: APPEARANCE,URINE CLEAR (CLEAR); BILIRUBIN,URINE NEGATIVE (NEGATIVE); COLOR,URINE LIGHT YELLOW (YELLOW); GLUCOSE, URINE (UA) NEGATIVE (NEGATIVE); KETONES,URINE NEGATIVE (NEGATIVE); LEUKOCYTE ESTERASE ,URINE NEGATIVE (NEGATIVE); NITRATE,URINE NEGATIVE (NEGATIVE); OCCULT BLOOD,URINE NEGATIVE (NEGATIVE); PH,URINE 7.5 (5.0-8.0); PROTEIN,URINE NEGATIVE (NEGATIVE); SPECIFIC GRAVITIY, URINE 1.017 (1.003-1.030); UROBILINOGEN,URINE <=1.0 mg/dL (<=1.0)
[2023-07-18] MEDS: AmLODIPine BESYLATE 10 MG TABLET PO ONE (19:00)
[2023-07-18 22:00] VITALS: BP 132/104; PULSE 80; RESP 18; TEMP 97.5; O2SAT 98
[2023-07-18] MEDS: ZOLPIDEM TARTRATE 10 MG TABLET PO PRN (22:31)
[2023-07-18 23:30] VITALS: BP 158/98; PULSE 95; RESP 18; TEMP 97.5; O2SAT 98
[2023-07-19] VITALS (13 sets, daily range): BP systolic 105–156; BP diastolic 66–94; PULSE 79–107; RESP 16–18; TEMP 96.2–98.2; O2SAT 95–98
[2023-07-19] MEDS: PNEUMOCOCCAL VACCINE POLYVALENT 0.5 ML SYRINGE [PPSV23] IM. ONE (04:30)
[2023-07-19] MEDS: BENZTROPINE MESYLATE 2 MG TABLET PO SCH (20:33)
[2023-07-19] MEDS: QUEtiapine FUMARATE 300 MG TABLET PO SCH (20:33)
[2023-07-19] MEDS: BusPIRone HCL 15 MG TABLET PO SCH (20:33)
[2023-07-20 00:49] VITALS: BP 139/90; PULSE 87; RESP 16; TEMP 97.2; O2SAT 97
[2023-07-20 04:00] VITALS: BP 130/82; PULSE 81; RESP 16; TEMP 97.9; O2SAT 97
[2023-07-20 06:07] LABS: HEPATITIS C AB (EIA) Reactive (Non Reactive)
[2023-07-20 08:33] VITALS: BP 133/78; PULSE 85; RESP 19; TEMP 97.9; O2SAT 97
[2023-07-20] MEDS: BuPROPion HCL XL 150 MG ER TABLET PO SCH (09:40)
[2023-07-20] MEDS: QUEtiapine FUMARATE 100 MG TABLET PO SCH (09:42)
[2023-07-20] MEDS: BENZTROPINE MESYLATE 1 MG TABLET PO SCH (09:42)
[2023-07-20] MEDS: NALTREXONE HCL 50 MG TABLET PO SCH (09:42)
[2023-07-20 19:00] VITALS: BP 130/78; PULSE 72; RESP 17; TEMP 97.8; O2SAT 98
[2023-07-20 20:17] VITALS: BP 155/106; PULSE 109; RESP 20; TEMP 97.2; O2SAT 97
[2023-07-20 20:57] VITALS: BP 113/69; PULSE 89; RESP 18; TEMP 98
[2023-07-21 08:20] VITALS: BP 141/97; PULSE 91; RESP 16; TEMP 97.4; O2SAT 100
[2023-07-21] MEDS ORDERED: QUET300T2 PO (13:33)
[2023-07-21] MEDS ORDERED: BUSP15 PO ×2 (13:33→22:13)
[2023-07-21] MEDS ORDERED: BENZ2TAB71 PO ×2 (13:33→22:13)
[2023-07-21] MEDS ORDERED: BENZ1TAB84 PO ×2 (13:34→22:13)
[2023-07-21] MEDS ORDERED: NALT50TA33 PO ×2 (13:34→22:13)
[2023-07-21] MEDS ORDERED: BUPR-50 PO (13:35)
[2023-07-21] MEDS ORDERED: QUET100T PO (13:35)
[2023-07-21] MEDS ORDERED: BUPR-49 PO (22:13)
[2023-07-21] MEDS ORDERED: QUET100T34 PO (22:13)
[2023-07-21] MEDS ORDERED: QUET300T19 PO (22:13)
[2023-07-22 14:06] LABS: HEPATITIS C RT-PCR,QNT HCV Not Detected IU/mL
== END 2023-07-21 16:24 | disposition home or self-care (01) | DRG 750 ==
LOC: EMS 02:32 → B2S 15:04
PROVIDERS: ADMIT Psychiatry & Neurology Psychiatry; ATTEND Psychiatry & Neurology Psychiatry
PROC: GZHZZZZ Group Psychotherapy (ICD-10-PCS; principal; 2023-07-21)
DX: F25.1 Schizoaffective disorder, depressive type (principal); R45.851 Suicidal ideations; F12.10 Cannabis abuse, uncomplicated; Z20.822 Contact with and (suspected) exposure to COVID-19; F31.9 Bipolar disorder, unspecified; I10 Essential (primary) hypertension; F41.9 Anxiety disorder, unspecified; Z79.899 Other long term (current) drug therapy; Z87.891 Personal history of nicotine dependence
CPT/HCPCS: 80048; 80307; 81003; 85025; 86803; 87340; 87522; 99285; G0480; J1200; J2060

== ENCOUNTER 2023-08-16 03:12 | Emergency (ER) | payer MEDICAID, OTHER ==
[~2023-08-16] VITALS: Ht 175.3 cm; Wt 72.7 kg
[~2023-08-16 03:12] MED LIST changes: +BENZ-247 PO; +BENZ2TAB84 PO; +BUPR-49 PO; +BUPR-514 PO; +BUSP15 PO; -DIVA-112 PO; +NALT50TA33 PO; +QUET100T34 PO; -QUET200T PO; +QUET300T19 PO; +QUET300T2 PO
[2023-08-16 03:25] VITALS: BP 154/93; PULSE 73; RESP 20; TEMP 97.7
[2023-08-16] MEDS: RisperiDONE 1 MG TABLET PO ONE (04:02)
[2023-08-16] MEDS: LORazepam 2 MG TABLET PO ONE (04:03)
[2023-08-16 04:07] LABS: EOSINOPHILS % (AUTO) 2.4 % (1.0-6.0); HEMATOCRIT 41.7 % (41-53); HEMOGLOBIN 13.8 g/dL (13.5-17.5); LYMPHOCYTES # (AUTO) 2.5 K/uL (1.0-4.8); MEAN CORPUSCULAR HEMOGLOBIN 28.1 pg (26.0-34.0); MEAN CORPUSCULAR HGB CONC 33.2 G/dL (31.0-37.0); MEAN CORPUSCULAR VOLUME 85 fL (80-100); MONOCYTES # (AUTO) 0.5 K/uL (0.1-1.0); MONOCYTES % (AUTO) 10.2 % (2.0-9.0); NEUTROPHILS # (AUTO) 2.1 K/uL (1.8-7.7); NEUTROPHILS % (AUTO) 39.4 % (40.0-70.0); PLATELET COUNT (AUTO) 342 K/uL (150-450); RED BLOOD CELL COUNT(AUTO) 4.93 MIL/uL (4.50-5.90); RED CELL DISTRIBUTION WIDTH 14.6 % (11.5-14.5); WHITE BLOOD COUNT (AUTO) 5.4 K/uL (4.5-11.0)
[2023-08-16 04:15] LABS: ANION GAP 0 mmol/L (8-16); CALCIUM, TOTAL 9.1 mg/dL (8.8-10.5); CARBON DIOXIDE 35 mmol/L (22-29); CHLORIDE 105 mmol/L (98-107); CREATININE 1.03 mg/dL (0.60-1.30); GLOMERULAR FILTR. RATE CALC > 60 mL/min (>60); GLUCOSE,RANDOM 85 mg/dL (70-110); POTASSIUM 3.8 mmol/L (3.5-5.1); SODIUM SERUM 140 mmol/L (136-145); UREA NITROGEN, BLOOD 14 mg/dL (7-18)
[2023-08-16 04:39] LABS: ALCOHOL, BLOOD (SERUM) < 3 mg/dL (0-10)
== END 2023-08-16 05:39 | disposition home or self-care (01) ==
LOC: EMS 03:12
DX: F41.0 Panic disorder [episodic paroxysmal anxiety] (principal); F25.1 Schizoaffective disorder, depressive type; F12.90 Cannabis use, unspecified, uncomplicated; I10 Essential (primary) hypertension; F17.210 Nicotine dependence, cigarettes, uncomplicated; F15.10 Other stimulant abuse, uncomplicated; Z79.899 Other long term (current) drug therapy
CPT/HCPCS: 99283; 80048; 85025; 36415; G0480

== ENCOUNTER 2023-12-03 04:16 | Inpatient (IN) | payer MEDICAID, OTHER ==
[~2023-12-03] VITALS: Ht 175.3 cm; Wt 74.4 kg
[2023-12-03 05:04] LABS: BASOPHILS % (AUTO) 0.9 % (0.0-2.0); EOSINOPHILS % (AUTO) 2.1 % (1.0-6.0); HEMATOCRIT 43.2 % (41-53); HEMOGLOBIN 14.2 g/dL (13.5-17.5); LYMPHOCYTES # (AUTO) 2.1 K/uL (1.0-4.8); LYMPHOCYTES % (AUTO) 45.2 % (22.0-44.0); MEAN CORPUSCULAR HEMOGLOBIN 28.5 pg (26.0-34.0); MEAN CORPUSCULAR HGB CONC 32.9 G/dL (31.0-37.0); MEAN CORPUSCULAR VOLUME 87 fL (80-100); MONOCYTES # (AUTO) 0.5 K/uL (0.1-1.0); MONOCYTES % (AUTO) 10.9 % (2.0-9.0); NEUTROPHILS # (AUTO) 1.9 K/uL (1.8-7.7); NEUTROPHILS % (AUTO) 40.9 % (40.0-70.0); PLATELET COUNT (AUTO) 329 K/uL (150-450); RED BLOOD CELL COUNT(AUTO) 4.98 MIL/uL (4.50-5.90); RED CELL DISTRIBUTION WIDTH 14.1 % (11.5-14.5); WHITE BLOOD COUNT (AUTO) 4.7 K/uL (4.5-11.0)
[2023-12-03 05:10] LABS: ANION GAP 9 mmol/L (8-16); CALCIUM, TOTAL 8.8 mg/dL (8.8-10.5); CARBON DIOXIDE 30 mmol/L (22-29); CHLORIDE 102 mmol/L (98-107); CREATININE 0.95 mg/dL (0.60-1.30); GLOMERULAR FILTR. RATE CALC > 60 mL/min (>60); GLUCOSE,RANDOM 90 mg/dL (70-110); SODIUM SERUM 141 mmol/L (136-145); UREA NITROGEN, BLOOD 12 mg/dL (7-18)
[2023-12-03 05:11] LABS: COVID AG,FIA SOURCE NASAL SWAB
[2023-12-03 05:12] LABS: ALCOHOL, BLOOD (SERUM) < 3 mg/dL (0-10)
[2023-12-03 05:31] LABS: SARS-COV2 (COVID) ANTIGEN,FIA Negative (Negative)
[2023-12-03] MEDS: QUEtiapine FUMARATE 100 MG TABLET PO ONE (06:15)
[2023-12-03 07:28] VITALS: O2SAT 99
[2023-12-03 07:36] LABS: PH,URINE DRUG SCREEN 6.5 (5.0-8.0)
[2023-12-03 08:16] LABS: ALCOHOL, URINE DRUG SCREEN NEGATIVE (NEGATIVE); AMPHET/METH SCREEN,URINE NEGATIVE (NEGATIVE); BARBITURATE SCREEN, URINE NEGATIVE (NEGATIVE); BENZODIAZEPINES SCREEN,URINE NEGATIVE (NEGATIVE); CANNABINOID SCREEN,URINE POSITIVE (NEGATIVE); COCAINE SCREEN,URINE NEGATIVE (NEGATIVE); METHADONE SCREEN, URINE NEGATIVE (NEGATIVE); OPIATE SCREEN,URINE NEGATIVE (NEGATIVE); PHENCYCLIDINE SCREEN,URINE NEGATIVE (NEGATIVE)
[2023-12-03] MEDS ORDERED: HALOPERIDOL 5 MG TABLET PO PRN (12:00)
[2023-12-03] MEDS ORDERED: CloNIDine HCL 0.1 MG TABLET PO PRN (15:15)
[2023-12-03] MEDS ORDERED: ONDANSETRON 4 MG TABLET PO PRN (15:15)
[2023-12-03] MEDS ORDERED: MAGNESIUM HYDROXIDE SUSPENSION 30 ML UDCUP PO PRN (15:15)
[2023-12-03] MEDS ORDERED: ACETAMINOPHEN 325 MG TABLET PO PRN (15:15)
[2023-12-03] MEDS ORDERED: IBUPROFEN 600 MG TABLET PO PRN (15:15)
[2023-12-03] MEDS ORDERED: LOPERAMIDE HCL 2 MG CAPSULE PO PRN (15:15)
[2023-12-03] MEDS ORDERED: DOCUSATE SODIUM 100 MG CAPSULE PO PRN (15:15)
[2023-12-03] MEDS ORDERED: MAG HYDROX/ALUMINUM HYD/SIMETH ES 30 ML SUSPENSION UDCUP PO PRN (15:15)
[2023-12-03] MEDS ORDERED: OMEPRAZOLE 20 MG CAPSULE PO PRN (15:15)
[2023-12-03] MEDS ORDERED: BACITRACIN 28 GM OINTMENT TP PRN (15:15)
[2023-12-03] MEDS ORDERED: PETROLATUM,WHITE 28 GM JELLY TP PRN (15:15)
[2023-12-03] MEDS ORDERED: ALBUTEROL SULFATE HFA 90 MCG/PUFF 8 GM INHALER IH PRN (15:15)
[2023-12-03] MEDS ORDERED: BENZOCAINE/MENTHOL LOZENGE PO PRN (15:15)
[2023-12-03 17:42] VITALS: RESP 17
[2023-12-03] MEDS: LORazepam 2 MG TABLET PO PRN (18:55)
[2023-12-03] MEDS: ZOLPIDEM TARTRATE 10 MG TABLET PO PRN (18:55)
[2023-12-04] MEDS: LISINOPRIL 10 MG TABLET PO SCH (08:34)
[2023-12-04 09:05] LABS: ALCOHOL, BLOOD (SERUM) < 3 mg/dL (0-10)
[2023-12-04 09:37] LABS: CHOL/HDL RATIO 2.3 (4.2-7.3); CHOLESTEROL 112 mg/dL (131-200); HDL CHOLESTEROL 49 mg/dL (40-60); LDL CHOL (CALC.) 56 mg/dL (0-130); T4 (THYROXINE) 6.8 mcg/dL (4.7-13.3); TRIGLYCERIDES 35 mg/dL (15-150)
[2023-12-04 20:05] VITALS: BP 121/72; PULSE 88; RESP 17; TEMP 97.1; O2SAT 98
[2023-12-04] MEDS: QUEtiapine FUMARATE 300 MG TABLET PO SCH (20:07)
[2023-12-05] MEDS: BuPROPion HCL XL 150 MG ER TABLET PO SCH (09:59)
[2023-12-05] MEDS: BusPIRone HCL 5 MG TABLET PO SCH (09:59)
[2023-12-05 23:06] VITALS: RESP 18
[2023-12-06 08:01] VITALS: BP 129/83; PULSE 76; RESP 18; TEMP 97.3; O2SAT 98
[2023-12-06] MEDS ORDERED: BUSP5TAB20 PO (13:12)
[2023-12-06] MEDS ORDERED: LISI-893 PO (13:15)
== END 2023-12-06 18:30 | disposition home or self-care (01) | DRG 750 ==
LOC: EMS 04:18 → B3A 11:56
PROVIDERS: ADMIT Psychiatry & Neurology Psychiatry; ATTEND Psychiatry & Neurology Psychiatry
DX: F25.1 Schizoaffective disorder, depressive type (principal); R45.851 Suicidal ideations; F31.9 Bipolar disorder, unspecified; K59.00 Constipation, unspecified; F15.10 Other stimulant abuse, uncomplicated; Z20.822 Contact with and (suspected) exposure to COVID-19; F12.90 Cannabis use, unspecified, uncomplicated; F41.9 Anxiety disorder, unspecified; I10 Essential (primary) hypertension; F17.200 Nicotine dependence, unspecified, uncomplicated
CPT/HCPCS: 80048; 80061; 80307; 84436; 84439; 84443; 85025; 86592; 99285; G0480

== ENCOUNTER 2024-05-21 18:12 | Emergency (ER) | payer MEDICAID, OTHER ==
[~2024-05-21] VITALS: Ht 175.3 cm; Wt 68.2 kg
[~2024-05-21 18:12] MED LIST changes: -BENZ-247 PO; -BENZ2TAB84 PO; -BUPR-49 PO; +BUPR-50 PO; -BUPR-514 PO; -BUSP15 PO; +BUSP5TAB20 PO; +LISI-893 PO; -NALT50TA33 PO; -QUET100T PO; -QUET100T34 PO; -QUET300T2 PO
[2024-05-21] MEDS ORDERED: QUET300T19 PO (19:09)
[2024-05-21] MEDS ORDERED: BUPR-50 PO (19:09)
[2024-05-21 19:37] VITALS: TEMP 98.2
[2024-05-21 19:40] VITALS: BP 138/60; PULSE 85; RESP 17; O2SAT 98
[2024-05-21] MEDS: LORazepam 1 MG TABLET PO ONE (19:51)
[2024-05-21] MEDS: QUEtiapine FUMARATE 100 MG TABLET PO ONE (19:51)
[2024-05-21 20:03] LABS: BASOPHILS % (AUTO) 1.1 % (0.0-2.0); HEMATOCRIT 40.9 % (41-53); HEMOGLOBIN 13.6 g/dL (13.5-17.5); LYMPHOCYTES # (AUTO) 1.9 K/uL (1.0-4.8); MEAN CORPUSCULAR HEMOGLOBIN 28.3 pg (26.0-34.0); MEAN CORPUSCULAR HGB CONC 33.3 G/dL (31.0-37.0); MEAN CORPUSCULAR VOLUME 85 fL (80-100); MONOCYTES # (AUTO) 0.5 K/uL (0.1-1.0); MONOCYTES % (AUTO) 10.1 % (2.0-9.0); NEUTROPHILS # (AUTO) 2.4 K/uL (1.8-7.7); NEUTROPHILS % (AUTO) 48.8 % (40.0-70.0); PLATELET COUNT (AUTO) 337 K/uL (150-450); RED BLOOD CELL COUNT(AUTO) 4.81 MIL/uL (4.50-5.90); RED CELL DISTRIBUTION WIDTH 13.8 % (11.5-14.5)
[2024-05-21 20:12] LABS: ANION GAP 3 mmol/L (8-16); CALCIUM, TOTAL 8.7 mg/dL (8.8-10.5); CARBON DIOXIDE 32 mmol/L (22-29); CHLORIDE 107 mmol/L (98-107); CREATININE 0.89 mg/dL (0.60-1.30); GLOMERULAR FILTR. RATE CALC > 60 mL/min (>60); GLUCOSE,RANDOM 89 mg/dL (70-110); SODIUM SERUM 142 mmol/L (136-145); UREA NITROGEN, BLOOD 10 mg/dL (7-18)
[2024-05-21 21:06] LABS: ALCOHOL, BLOOD (SERUM) < 3 mg/dL (0-10)
== END 2024-05-21 21:32 | disposition home or self-care (01) ==
LOC: EMS 18:14
DX: F25.1 Schizoaffective disorder, depressive type (principal); F41.9 Anxiety disorder, unspecified; I10 Essential (primary) hypertension; F12.90 Cannabis use, unspecified, uncomplicated; F17.210 Nicotine dependence, cigarettes, uncomplicated; Z79.899 Other long term (current) drug therapy
CPT/HCPCS: 99283; 80048; 85025; 36415; G0480

== ENCOUNTER 2024-05-26 20:29 | Emergency (ER) | payer OTHER ==
[~2024-05-26] VITALS: Ht 177.8 cm; Wt 81.8 kg
[2024-05-26 20:43] VITALS: BP 126/75; PULSE 87; RESP 18; TEMP 98.1; O2SAT 100
[2024-05-27] MEDS: LORazepam 1 MG TABLET PO ONE (00:04)
== END 2024-05-27 03:58 | disposition home or self-care (01) ==
LOC: EMS 20:29
DX: F41.9 Anxiety disorder, unspecified (principal); I10 Essential (primary) hypertension; F20.9 Schizophrenia, unspecified; F31.9 Bipolar disorder, unspecified; F17.210 Nicotine dependence, cigarettes, uncomplicated; Z79.899 Other long term (current) drug therapy
CPT/HCPCS: 99283

== ENCOUNTER 2024-06-30 20:26 | Emergency (ER) | payer OTHER ==
[~2024-06-30] VITALS: Ht 177.8 cm; Wt 77.3 kg
[2024-06-30 20:37] VITALS: TEMP 97.4
[2024-06-30 21:35] LABS: BASOPHILS % (AUTO) 1.2 % (0.0-2.0); EOSINOPHILS % (AUTO) 1.3 % (1.0-6.0); HEMATOCRIT 42.6 % (41-53); HEMOGLOBIN 14.3 g/dL (13.5-17.5); LYMPHOCYTES # (AUTO) 1.9 K/uL (1.0-4.8); LYMPHOCYTES % (AUTO) 42.9 % (22.0-44.0); MEAN CORPUSCULAR HEMOGLOBIN 28.4 pg (26.0-34.0); MEAN CORPUSCULAR HGB CONC 33.5 G/dL (31.0-37.0); MEAN CORPUSCULAR VOLUME 85 fL (80-100); MONOCYTES # (AUTO) 0.4 K/uL (0.1-1.0); MONOCYTES % (AUTO) 9.3 % (2.0-9.0); NEUTROPHILS % (AUTO) 45.3 % (40.0-70.0); PLATELET COUNT (AUTO) 325 K/uL (150-450); RED BLOOD CELL COUNT(AUTO) 5.02 MIL/uL (4.50-5.90); RED CELL DISTRIBUTION WIDTH 14.4 % (11.5-14.5); WHITE BLOOD COUNT (AUTO) 4.5 K/uL (4.5-11.0)
[2024-06-30 21:36] LABS: ANION GAP 5 mmol/L (8-16); CARBON DIOXIDE 32 mmol/L (22-29); CHLORIDE 104 mmol/L (98-107); CREATININE 1.19 mg/dL (0.60-1.30); GLOMERULAR FILTR. RATE CALC > 60 mL/min (>60); GLUCOSE,RANDOM 83 mg/dL (70-110); POTASSIUM 3.8 mmol/L (3.5-5.1); SODIUM SERUM 141 mmol/L (136-145); UREA NITROGEN, BLOOD 12 mg/dL (7-18)
[2024-06-30 23:43] VITALS: BP 131/72; PULSE 69; RESP 18; O2SAT 96
[2024-06-30] MEDS ORDERED: QUET300T19 PO (23:49)
[2024-06-30] MEDS: LORazepam 2 MG TABLET PO ONE (23:52)
== END 2024-06-30 23:55 | disposition home or self-care (01) ==
LOC: EMS 20:26
DX: F41.0 Panic disorder [episodic paroxysmal anxiety] (principal); F31.9 Bipolar disorder, unspecified; I10 Essential (primary) hypertension; F20.9 Schizophrenia, unspecified; F19.10 Other psychoactive substance abuse, uncomplicated; F17.210 Nicotine dependence, cigarettes, uncomplicated; F15.90 Other stimulant use, unspecified, uncomplicated; Z76.0 Encounter for issue of repeat prescription; Z98.890 Other specified postprocedural states; Z79.899 Other long term (current) drug therapy
CPT/HCPCS: 80048; 85025; 36415; 99283; G0480